=== PATIENT | male | born 1965 | race African-American/Black ===

== ENCOUNTER 2017-01-21 11:56 | Emergency (ER) | payer OTHER ==
--- NOTE | ~2017-01-21 | EKG ---
PATIENT: MADAN DUNNE UNIT #: [id number] Ventricular Rate: 65 BPM Atrial Rate: 65 BPM P-R Interval: 208 ms QRS Duration: 94 ms Q-T Interval: 410 ms QTC Calculation(Bezet): 426 ms P [place]: 46 degrees Calculated R [place]: 75 degrees Calculated T [place]: 78 degrees Diagnosis Line: Normal sinus rhythm Diagnosis Line: Normal ECG Diagnosis Line: No previous ECGs available Diagnosis Line: Confirmed by REE FRANCIS MD ([id number]) on Diagnosis Line: 01/22/2017 4:33:28 PM INTERPRETING MD: PENNY SHELL
[2017-01-21 10:48] LABS: POC - CKMB 2.2 ng/mL (0.0-7.9); POC - TROPONIN <0.05 ng/mL (<=0.05)
[2017-01-21 11:56] LABS: BASOPHIL# 0.1 X10e3 (0-0.3); BASOPHIL% 1.2 % (0-2.5); EOSINOPHIL# 0.3 X10e3 (0-0.7); EOSINOPHIL% 5.9 % (0.0-7.0); HEMATOCRIT 37.9 % (38.0-50.0); HEMOGLOBIN 12.5 gm/dL (13.0-16.0); LYMPHOCYTE# 1.9 X10e3 (1.0-3.5); LYMPHOCYTE% 36.3 % (17.0-45.0); MEAN CELL VOLUME 98.3 FL (83-96); MEAN CORPUSCULAR HEMOGLOBIN 32.5 PG (28-34); MEAN PLATELET VOLUME 8.7 FL (6.5-11.5); MONOCYTE# 0.5 X10e3 (0-1.0); MONOCYTE% 9.2 % (3.0-12.0); NEUTROPHIL# 2.4 X10e3 (1.5-7.1); NEUTROPHIL% 47.4 % (40-75); PLATELET COUNT 266 X10e3 (140-420); RED BLOOD COUNT 3.86 X10e (3.90-5.60); RED CELL DISTRIBUTION WIDTH 12.5 % (11.0-15.5); WHITE BLOOD COUNT 5.1 X10e3 (4.0-10.5)
[2017-01-21 11:58] LABS: DIFF IND NO
[2017-01-21 12:09] LABS: ALBUMIN SERUM 3.5 g/dL (3.5-5.0); BILIRUBIN, DIRECT 0.1 mg/dL (0.0-0.2); BILIRUBIN,INDIRECT 0.4 mg/dL (0.0-0.9); BILIRUBIN,TOTAL 0.5 mg/dL (0.2-2.0); CALCIUM SERUM 8.8 mg/dL (8.4-10.2); CREATININE SERUM 0.9 mg/dL (0.6-1.4); GLOM FILT RATE Estimated 112.6 mL/min (>60); PROTEIN TOTAL SERUM 7.7 g/dL (6.0-8.3)
[2017-05-21] MEDS ORDERED: NO MEDICATIONS (07:29)
== END 2017-01-21 13:46 | disposition home or self-care (01) ==
LOC: CED 11:56
PROVIDERS: Emergency Medicine
DX: R42 Dizziness and giddiness (principal); I10 Essential (primary) hypertension; F17.200 Nicotine dependence, unspecified, uncomplicated
CPT/HCPCS: 36415; 80048; 80076; 82553; 82947; 84484; 85025; 93005; 96361; 96374; 99284; J2930

== ENCOUNTER → 2017-05-21 | Day surgery (SDC) | payer OTHER ==
[~2017-05-21] MED LIST: NO MEDICATIONS
--- NOTE | ~2017-05-21 | OR ---
Unit #: [id number] #: [id number] Patient: MADAN DUNNE [id number] [address] [id number] MR#: [id number] NAME: MADAN DUNNE ROOM: Date of Procedure: 05/21/2017 Admission Date: 05/21/2017 Surgeon: Hood Duval M.D. : 1965 Attending Physician: Hood Duval M.D. Primary Care Physician: Jessica Contreras A.P.R.N. OPERATIVE REPORT PROCEDURES PERFORMED Esophagogastroduodenoscopy with biopsy and colonoscopy with snare polypectomy. INDICATIONS FOR PROCEDURE The patient with iron-deficiency anemia, average risk for colorectal cancer, undergoing colonoscopy and upper endoscopy for evaluation. MEDICATIONS Monitored anesthesia. POSTOPERATIVE FINDINGS 1. Normal stomach, duodenum, and distal duodenum. Biopsies taken looking for H pylori. 2. Polyp 5 mm, snared and sent for histopathology, was in transverse colon. 3. Rest of the colon exam to cecum was normal. PLAN Follow up on the pathology report. Repeat colonoscopy in 5 years. Follow H and H. DESCRIPTION OF PROCEDURE The patient was explained of the procedure, risks, and benefits along with the risks and benefits of anesthesia. He was brought to the endoscopy room. Propofol anesthesia was given. Bite block was placed. The scope was passed down the mouth into the esophagus, stomach, duodenum, and distal duodenum. Findings as described. Biopsies taken. Gently, I pulled the scope out of the patient's mouth. At this time, he was turned around and repositioned for colonoscopy. Rectal exam was done, which was normal. Colonoscope was lubricated, passed up the rectum, advanced under direct vision all the way to the cecum. Cecum was identified by ileocecal valve and appendiceal orifice. Polyp seen in transverse colon was snared and sent for histopathology. Rest of the colonic mucosa was normal. I retroflexed in the rectum, small hemorrhoids were seen. The scope was gently pulled out. He tolerated it well. No major complications were seen. Dictated by... Hood Duval M.D. Unit #: [id number] #: [id number] Patient: MADAN DUNNE/del TD: 05/21/2017 19:51 JOB #: [id number] CC: Charity Bray M.D. OPERATIVE REPORT Page 1 of 1 X Hood Duval MD PROCEDURE OPERATIVE NOTE
== END | disposition home or self-care (01) ==
LOC: COPS 06:23
DX: D12.3 Benign neoplasm of transverse colon (principal); D50.9 Iron deficiency anemia, unspecified; K64.9 Unspecified hemorrhoids; F17.210 Nicotine dependence, cigarettes, uncomplicated; K29.50 Unspecified chronic gastritis without bleeding
CPT/HCPCS: 88305; 88312

== ENCOUNTER 2017-06-10 05:04 | Emergency (ER) | payer OTHER ==
[~2017-06-10] VITALS: Ht 180.3 cm; Wt 87.0 kg
== END 2017-06-10 07:36 | disposition home or self-care (01) ==
LOC: CED 05:04
DX: B02.9 Zoster without complications (principal); I10 Essential (primary) hypertension; F17.210 Nicotine dependence, cigarettes, uncomplicated
CPT/HCPCS: 99283